=== PATIENT | female | born 1965 | race Caucasian/White ===

== ENCOUNTER → 2022-02-11 | Day surgery (SDC) | payer BC | END | disposition home or self-care (01) | LOC: JRADUS-SUR 10:00 | PROVIDERS: ATTEND Specialist | PROC: BH41ZZZ Ultrasonography of Left Breast (ICD-10-PCS; principal; 2022-02-11) | PROC: 0H9U3ZX Drainage of Left Breast, Percutaneous Approach, Diagnostic (ICD-10-PCS; 2022-02-11) | DX: N60.02 Solitary cyst of left breast (principal) | CPT/HCPCS: 19000; 76942-TC; 77065-TC; 87899; 88173; 88305-TC; A4648 ==